=== PATIENT | female | born 1985 | race Caucasian/White ===

== ENCOUNTER 2016-08-08 16:31 | Outpatient (CLI) | payer MEDICARE ==
[2016-08-08] MEDS ORDERED: IOPAMIDOL-300 100 ML VIAL IVP ONE (17:15)
== END 2016-08-08 16:32 | disposition home or self-care (01) ==
DX: Q67.0 Congenital facial asymmetry (principal)
CPT/HCPCS: 70470; Q9967

== ENCOUNTER 2016-12-21 08:00 | Outpatient (CLI) | payer MEDICARE ==
[2016-12-21 18:50] LABS: BASOPHILS % (AUTO) 0.9 %; EOSINOPHILS # (AUTO) 0.4 10^3/uL (0.0-0.7); HGB - HEMOGLOBIN 14.1 g/dL (12.0-16.0); LYMPHOCYTES # (AUTO) 1.8 10^3/uL (1.5-3.5); LYMPHOCYTES % (AUTO) 32.3 %; MEAN CORPUSCULAR HEMOGLOBIN 30.2 pg (27.0-31.0); MEAN CORPUSCULAR HGB CONC 33.6 g/dL (32.0-36.0); MEAN CORPUSCULAR VOLUME 89.8 fL (81.0-99.0); MEAN PLATELET VOLUME 7.4 fL (7.9-10.8); MONOCYTES # (AUTO) 0.3 10^3/uL (0.0-1.0); MONOCYTES % (AUTO) 5.8 %; RED BLOOD COUNT 4.67 10^6/uL (4.20-5.40); RED CELL DISTRIBUTION WIDTH 13.8 % (12.0-15.0); UNCORRECTED WHITE BLOOD COUNT 5.6 x10^3/uL; WHITE BLOOD COUNT 5.6 x10^3/uL (4.8-10.8)
[2016-12-21 19:02] LABS: ALBUMIN/GLOBULIN RATIO 1.7 (1.0-2.2); BILIRUBIN,TOTAL 0.4 mg/dL (0.2-1.0); BUN - BLOOD UREA NITROGEN 18 mg/dL (6-20); CALCIUM 9.2 mg/dL (8.5-10.3); CARBON DIOXIDE - CO2 28 mmol/L (21-32); CHLORIDE 104 mmol/L (101-111); CHOLESTEROL 148 mg/dL; CREATININE 0.7 mg/dL (0.4-1.0); GFR - MDRD 96 (>89); GLUCOSE 94 mg/dL (70-100); HDL CHOLESTEROL 74 mg/dL; POTASSIUM 3.8 mmol/L (3.5-5.0); SODIUM 138 mmol/L (135-145); TOTAL PROTEIN 7.1 g/dL (6.7-8.2); TRIGLYCERIDES 39 mg/dL
[2016-12-21 19:25] LABS: LDL CHOLESTEROL,DIRECT 53 mg/dL
== END 2016-12-21 08:01 ==
LOC: LAB.N 08:00
PROVIDERS: ATTEND Nurse Practitioner Gerontology
DX: Z79.899 Other long term (current) drug therapy (principal)
CPT/HCPCS: 36415; 80053; 80061; 84443; 85025

== ENCOUNTER 2017-03-08 07:02 | Outpatient (CLI) | payer MEDICARE ==
[2017-03-08 19:33] LABS: INR 1.1 (0.8-1.2); PT - PROTHROMBIN TIME 11.9 secs (9.9-12.6)
[2017-03-08 19:36] LABS: ALBUMIN/GLOBULIN RATIO 1.8 (1.0-2.2); BILIRUBIN,TOTAL 0.9 mg/dL (0.2-1.0); CALCIUM 9.7 mg/dL (8.5-10.3); CREATININE 0.7 mg/dL (0.4-1.0); POTASSIUM 3.9 mmol/L (3.5-5.0); TOTAL PROTEIN 7.1 g/dL (6.7-8.2)
[2017-03-08 19:42] LABS: PARTIAL THROMBOPLASTIN TIME 27.2 secs (24.9-33.3)
== END 2017-03-08 07:03 | disposition home or self-care (01) ==
LOC: LAB.N 07:02
PROVIDERS: ATTEND Nurse Practitioner Gerontology
DX: Z01.818 Encounter for other preprocedural examination (principal)
CPT/HCPCS: 36415; 80053; 85025; 85610; 85730; 86317; 86803; 87389

== ENCOUNTER 2017-03-08 14:30 | Outpatient (CLI) | payer MEDICARE | END 2017-03-08 15:00 | disposition home or self-care (01) | LOC: RT.N 14:30 | PROVIDERS: ATTEND Nurse Practitioner Gerontology | DX: Z01.810 Encounter for preprocedural cardiovascular examination (principal) | CPT/HCPCS: 93005 ==

== ENCOUNTER 2017-03-08 15:07 | Outpatient (CLI) | payer MEDICARE | END 2017-03-08 15:08 | disposition home or self-care (01) | LOC: DI.N 15:07 | PROVIDERS: ATTEND Nurse Practitioner Gerontology | DX: Z53.9 Procedure and treatment not carried out, unspecified reason (principal) ==

== ENCOUNTER 2017-03-08 15:59 | Outpatient (CLI) | payer MEDICARE | END 2017-03-08 16:00 | disposition EMS.NT | LOC: EMS 15:59 | PROVIDERS: ATTEND Surgery | DX: R55 Syncope and collapse (principal) ==

== ENCOUNTER 2017-03-09 06:59 | Outpatient (CLI) | payer MEDICARE ==
[2017-03-09 19:11] LABS: BASOPHILS % (AUTO) 0.7 %; EOSINOPHILS # (AUTO) 0.2 10^3/uL (0.0-0.7); EOSINOPHILS % (AUTO) 2.8 %; HGB - HEMOGLOBIN 14.5 g/dL (12.0-16.0); LYMPHOCYTES # (AUTO) 1.5 10^3/uL (1.5-3.5); LYMPHOCYTES % (AUTO) 23.2 %; MEAN CORPUSCULAR HEMOGLOBIN 30.8 pg (27.0-31.0); MEAN CORPUSCULAR HGB CONC 34.6 g/dL (32.0-36.0); MEAN PLATELET VOLUME 8.1 fL (7.9-10.8); MONOCYTES # (AUTO) 0.5 10^3/uL (0.0-1.0); MONOCYTES % (AUTO) 7.3 %; NEUTROPHILS # (AUTO) 4.2 10^3/uL (1.5-6.6); RED BLOOD COUNT 4.72 10^6/uL (4.20-5.40); RED CELL DISTRIBUTION WIDTH 13.9 % (12.0-15.0); UNCORRECTED WHITE BLOOD COUNT 6.4 x10^3/uL; WHITE BLOOD COUNT 6.4 x10^3/uL (4.8-10.8)
== END 2017-03-09 07:00 | disposition home or self-care (01) ==
LOC: LAB.WCP 06:59
PROVIDERS: ATTEND Nurse Practitioner Gerontology
DX: Z01.818 Encounter for other preprocedural examination (principal)
CPT/HCPCS: 36415; 85025; 87389

== ENCOUNTER 2017-03-09 07:01 | Outpatient (CLI) | payer MEDICARE | END 2017-03-09 07:02 | disposition home or self-care (01) | LOC: LAB.N 07:01 | PROVIDERS: ATTEND Nurse Practitioner Gerontology | DX: Z53.9 Procedure and treatment not carried out, unspecified reason (principal) | CPT/HCPCS: 85025; 87389 ==

== ENCOUNTER 2017-03-09 11:06 | Outpatient (CLI) | payer MEDICARE ==
--- NOTE | 2017-03-09 13:45 | XRAY Report ---
CHEST TWO VIEWS: 03/09/2017 CLINICAL HISTORY: Preop check. COMPARISON: None. FINDINGS: Normal heart size. Clear lungs. No pleural effusion or pneumothorax. Normal bony structure s. IMPRESSION: NEGATIVE TWO VIEW CHEST. JOB #: [id number] EXT JOB #:[id number]
== END 2017-03-09 11:07 | disposition home or self-care (01) ==
LOC: DI.N 11:06
PROVIDERS: ATTEND Nurse Practitioner Gerontology
DX: Z01.818 Encounter for other preprocedural examination (principal)
CPT/HCPCS: 36415; 71020; 85025; G0475; 87389

== ENCOUNTER 2018-07-04 10:53 | Outpatient (CLI) | payer MEDICARE, OTHER ==
[2018-07-04 13:15] LABS: BASOPHILS % (AUTO) 0.5 %; EOSINOPHILS # (AUTO) 0.2 10^3/uL (0.0-0.7); EOSINOPHILS % (AUTO) 3.5 %; HGB - HEMOGLOBIN 14.4 g/dL (12.0-16.0); LYMPHOCYTES # (AUTO) 1.9 10^3/uL (1.5-3.5); LYMPHOCYTES % (AUTO) 38.6 %; MEAN CORPUSCULAR HEMOGLOBIN 31.1 pg (27.0-31.0); MEAN CORPUSCULAR HGB CONC 34.1 g/dL (32.0-36.0); MEAN CORPUSCULAR VOLUME 91.1 fL (81.0-99.0); MONOCYTES # (AUTO) 0.4 10^3/uL (0.0-1.0); MONOCYTES % (AUTO) 7.3 %; NEUTROPHILS # (AUTO) 2.5 10^3/uL (1.5-6.6); NEUTROPHILS % (AUTO) 50.1 %; PLT - PLATELET COUNT 254 10^3/uL (130-450); RED BLOOD COUNT 4.64 10^6/uL (4.20-5.40); WHITE BLOOD COUNT 5.1 x10^3/uL (4.8-10.8)
[2018-07-04 14:36] LABS: ALBUMIN 4.4 g/dL (3.2-5.5); ALBUMIN/GLOBULIN RATIO 1.6 (1.0-2.2); ALKALINE PHOSPHATASE 48 IU/L (42-121); ALT ALANINE AMINOTRANSFERASE 14 IU/L (10-60); AST ASPARTATE AMINOTRANSFERASE 19 IU/L (10-42); BILIRUBIN,TOTAL 0.6 mg/dL (0.2-1.0); BUN - BLOOD UREA NITROGEN 14 mg/dL (6-20); CARBON DIOXIDE - CO2 21 mmol/L (21-32); CHLORIDE 103 mmol/L (101-111); CHOL/HDL RATIO 2.5 (<4.4); CHOLESTEROL 136 mg/dL; CREATININE 0.7 mg/dL (0.4-1.0); GFR - MDRD 96 (>89); GLUCOSE 150 mg/dL (70-100); HDL CHOLESTEROL 55 mg/dL; LDL CHOLESTEROL,CALCULATED 71 mg/dL; LDL/HDL RATIO 1.3 (<4.4); SODIUM 134 mmol/L (135-145); TOTAL PROTEIN 7.2 g/dL (6.7-8.2); VLDL CHOLESTEROL 10 mg/dL
== END 2018-07-04 23:59 | disposition home or self-care (01) ==
LOC: LAB.N 10:53
PROVIDERS: ATTEND Nurse Practitioner Gerontology
DX: Z79.899 Other long term (current) drug therapy (principal)
CPT/HCPCS: 36415; 80053; 80061; 83721; 84443; 85025

== ENCOUNTER → 2020-04-09 | Outpatient (CLI) | payer MEDICARE ==
[2020-04-09 18:23] LABS: BASOPHILS % (AUTO) 0.5 %; EOSINOPHILS # (AUTO) 0.3 10^3/uL (0.0-0.7); LYMPHOCYTES # (AUTO) 1.8 10^3/uL (1.5-3.5); LYMPHOCYTES % (AUTO) 30.2 %; MEAN CORPUSCULAR HEMOGLOBIN 31.5 pg (27.0-31.0); MEAN CORPUSCULAR HGB CONC 33.6 g/dL (32.0-36.0); MEAN CORPUSCULAR VOLUME 93.9 fL (81.0-99.0); MEAN PLATELET VOLUME 9.3 fL (7.9-10.8); MONOCYTES # (AUTO) 0.4 10^3/uL (0.0-1.0); MONOCYTES % (AUTO) 7.6 %; NEUTROPHILS # (AUTO) 3.3 10^3/uL (1.5-6.6); NEUTROPHILS % (AUTO) 56.2 %; PLT - PLATELET COUNT 288 10^3/uL (130-450); RED BLOOD COUNT 4.44 10^6/uL (4.20-5.40); RED CELL DISTRIBUTION WIDTH 13.4 % (12.0-15.0); WHITE BLOOD COUNT 5.8 x10^3/uL (4.8-10.8)
[2020-04-09 19:00] LABS: ALBUMIN 4.5 g/dL (3.2-5.5); ALBUMIN/GLOBULIN RATIO 1.6 (1.0-2.2); ALKALINE PHOSPHATASE 46 IU/L (42-121); ALT ALANINE AMINOTRANSFERASE 13 IU/L (10-60); AST ASPARTATE AMINOTRANSFERASE 21 IU/L (10-42); BILIRUBIN,TOTAL 0.6 mg/dL (0.2-1.0); BUN - BLOOD UREA NITROGEN 17 mg/dL (6-20); CALCIUM 9.7 mg/dL (8.5-10.3); CARBON DIOXIDE - CO2 25 mmol/L (21-32); CHLORIDE 101 mmol/L (101-111); CHOL/HDL RATIO 1.8 (<4.4); CHOLESTEROL 169 mg/dL; CREATININE 0.7 mg/dL (0.4-1.0); GLUCOSE 95 mg/dL (70-100); HDL CHOLESTEROL 93 mg/dL; LDL CHOLESTEROL,CALCULATED 62 mg/dL; LDL/HDL RATIO 0.7 (<4.4); SODIUM 136 mmol/L (135-145); TOTAL PROTEIN 7.4 g/dL (6.7-8.2); VLDL CHOLESTEROL 14 mg/dL
== END ==
LOC: LAB.WCP 08:00
PROVIDERS: ATTEND Family Medicine
DX: Z00.00 Encounter for general adult medical examination without abnormal findings (principal); Z79.899 Other long term (current) drug therapy
CPT/HCPCS: 36415; 80053; 80061; 83721; 84443; 85025

== ENCOUNTER 2022-07-20 10:20 | Outpatient (CLI) | payer SELFPAY | END 2022-07-20 23:59 | disposition home or self-care (01) | LOC: LAB.WCP 10:20 | PROVIDERS: ATTEND Physician Assistant Medical | DX: R35.0 Frequency of micturition (principal) | CPT/HCPCS: 87086 ==

== ENCOUNTER 2022-08-26 19:00 | Outpatient (CLI) | payer MEDICAID | END 2022-08-26 19:01 | disposition left against medical advice (07) | LOC: EMS 19:00 | DX: R19.8 Other specified symptoms and signs involving the digestive system and abdomen (principal); F41.9 Anxiety disorder, unspecified ==

== ENCOUNTER 2022-08-28 08:00 | Outpatient (CLI) | payer MEDICAID | END 2022-08-28 23:59 | disposition home or self-care (01) | LOC: LAB.N 08:00 | PROVIDERS: ATTEND Nurse Practitioner | DX: R39.15 Urgency of urination (principal) | CPT/HCPCS: 87086 ==

== ENCOUNTER 2022-09-01 13:30 | Outpatient (CLI) | payer MEDICAID ==
[2022-09-02 00:26] LABS: BACTERIAL VAGINOSIS DNA NEGATIVE (NEGATIVE); CANDIDA GLABRATA DNA NEGATIVE (NEGATIVE); CANDIDA GROUP DNA NEGATIVE (NEGATIVE); CANDIDA KRUSEI DNA NEGATIVE (NEGATIVE); TRICHOMONAS VAGINALIS DNA NEGATIVE (NEGATIVE)
[2022-09-02 08:59] LABS: CHLAMYDIA TRACHOMATIS DNA NEGATIVE (NEGATIVE); NEISSERIA GONORRHOEAE DNA NEGATIVE (NEGATIVE)
== END 2022-09-01 13:45 | disposition home or self-care (01) ==
LOC: LAB.N 13:30
PROVIDERS: ATTEND Physician Assistant Medical
DX: R35.0 Frequency of micturition (principal)
CPT/HCPCS: 81514; 87491; 87591; 87661

== ENCOUNTER 2022-09-06 09:40 | Outpatient (CLI) | payer MEDICAID ==
--- NOTE | 2022-09-07 10:14 | Ultrasound Report ---
LIMITED ULTRASOUND OF RIGHT BREAST: 09/06/2022 CLINICAL: Palpable right breast lump. No prior exams were available for comparison. Color flow and real-time ultrasound of the right breast 4-6 o'clock region were performed on the area s of interest. Gomez scale images of the real-time examination were reviewed. There is a mass in the right breast at 6 o'clock in the retroareolar region. This mass is hypoechoic with internal echoes and posterior acoustic enhancement. This likely correlates as palpated but was not seen on the prior mammogram. IMPRESSION: PROBABLY BENIGN The mass in the right breast is likely represents a lymph node or a fibroadenoma and is probably birdie gn. A follow-up ultrasound in 6 months is recommended to demonstrate stability. This exam was interpreted at Station ID: [id number]. Electronically Signed By: Trudi Valencia M.D. lk/:09/06/2022 11:04:25 Ultrasound BI-RADS: 3 Probably benign BI-RADS CATEGORY: (3) - 3 Ultrasound [id number] 6 month follow-up LATERALITY: (B)
--- NOTE | 2022-09-07 10:14 | Mammography Report ---
BILATERAL DIGITAL DIAGNOSTIC MAMMOGRAM 3D/2D WITH SPOT COMPRESSION: 09/06/2022 CLINICAL: Baseline exam. Palpable right breast lump. No prior exams were available for comparison. Both breasts are extremely dense, which lowers the sensitivity of mammography (category d />75% gland ular tissue). No significant masses, calcifications, or other findings are seen in either breast. IMPRESSION: INCOMPLETE: NEEDS ADDITIONAL IMAGING EVALUATION There is no mammographic abnormality seen in the right breast to correspond with the palpable abnorma lity, however, targeted ultrasound of the right breast is recommended and will be performed immediat nuris following this exam. Based on the Tyrer Cuzick model (a risk assessment model) the patients lifetime risk is 15.1% and he r 10 year risk is 1.6%. According to the ACR, ACS, and NCCN guidelines, an annual breast MRI exam taran ng with mammogram is recommended if the patients lifetime risk is 20% or greater. This exam was interpreted at Station ID: [id number]. NOTE: For mammograms, a report in lay terms will be sent to the patient. Approximately 15% of breast malignancies will not be visualized mammographically. In the management of a palpable breast mass, a negative mammogram must not discourage biopsy of a clinically suspicious lesion. Electronically Signed By: Trudi Valencia M.D. lk/:09/06/2022 10:23:05 ACR BI-RADS Category 0: Incomplete 3340F PARENCHYMAL PATTERN: (VD) - The breast(s) demonstrate(s) extremely dense parenchyma, limiting the sen sitivity of mammography. BI-RADS CATEGORY: (0) - 0 Ultrasound [id number] Immediate follow-up LATERALITY: (B)
== END 2022-09-06 09:41 | disposition home or self-care (01) ==
LOC: DI 09:40
PROVIDERS: ATTEND Physician Assistant Medical
DX: N63.15 Unspecified lump in the right breast, overlapping quadrants (principal)

== ENCOUNTER 2022-10-30 12:03 | Outpatient (CLI) | payer MEDICAID ==
--- NOTE | 2022-10-31 09:30 | Ultrasound Report ---
LIMITED ULTRASOUND OF RIGHT BREAST: 10/30/2022 CLINICAL: Palpable right breast lump by physician. Short term follow up of the right breast. Comparison is made to exams dated: 09/06/2022 ultrasound and 09/06/2022 mammogram - [facility]. Color flow ultrasound of the right breast 4-6 o'clock and 12 o'clock regions was performed. Gomez sca le images of the real-time examination were reviewed. There is a 1.2 cm x 1.2 cm x 0.4 cm irregular cyst with a septated internal wall in the right breast at 12 o'clock posterior depth 3 cm from the nipple. This irregular cyst is anechoic with posterior a coustic enhancement. This correlates as palpated. Color flow imaging demonstrates that there is no vascularity present. There also is a 0.6 cm x 0.4 cm x 0.2 cm oval mass with a circumscribed margin in the right breast at 6 o'clock in the retroareolar region 2 cm from the nipple. This oval mass is hypoechoic with web marketing intern al echoes and posterior acoustic enhancement. This abnormality is not significantly changed. IMPRESSION: PROBABLY BENIGN The 1.2 cm x 1.2 cm x 0.4 cm irregular cyst in the right breast at 12 o'clock posterior depth is cons istent with a complicated cyst and is probably benign. The 0.6 cm x 0.4 cm x 0.2 cm oval mass in the right breast at 6 o'clock in the retroareolar region is consistent with a complicated cyst, a lymph node, or a fibroadenoma and is probably benign. A follow-up right mammogram and an ultrasound in 6 months is recommended to demonstrate stability. F uture imaging is recommended as follows: 03/09/2023 right mammogram and an ultrasound. This exam was interpreted at Station ID: [id number]. Electronically Signed By: Jaspal beal/michael:10/30/2022 14:26:01 Ultrasound BI-RADS: 3 Probably benign BI-RADS CATEGORY: (3) - 3 Mammo and US [id number] 6 month follow-up LATERALITY: (R)
== END 2022-10-30 12:04 | disposition home or self-care (01) ==
LOC: DI 12:03
PROVIDERS: ATTEND Surgery
DX: N60.01 Solitary cyst of right breast (principal); N63.15 Unspecified lump in the right breast, overlapping quadrants

== ENCOUNTER 2022-11-01 09:31 | Outpatient (CLI) | payer MEDICAID ==
--- NOTE | 2022-11-03 11:29 | Ultrasound Report ---
LIMITED ULTRASOUND OF RIGHT BREAST: 11/01/2022 CLINICAL: Patient returns for additional imaging over a suspected mass in the right breast. Comparison is made to exams dated: 10/30/2022 ultrasound, 09/06/2022 ultrasound, and 09/06/2022 mammogr am - [facility]. Color flow ultrasound of the right breast 4 o'clock, 6 o'clock, and 12 o'clock regions was performed. Gomez scale images of the real-time examination were reviewed. There is a 0.6 cm x 0.5 cm x 0.3 cm oval mass with an indistinct margin in the right breast at 6 o'cl ock anterior depth 2 cm from the nipple with the long axis parallel to the skin. This oval mass is h ypoechoic with posterior acoustic enhancement. This abnormality is decreased in size and correlates as palpated. Color flow imaging demonstrates that there is no vascularity present. There also is a 1.3 cm x 0.9 cm x 0.3 cm complicated cyst in the right breast at 12 o'clock anterior depth 2 cm from the nipple. It has a smooth, lobulated margin and has decreased in size. Color flow imaging demonstrates that there is no vascularity present. An incidental oval mass parallel to the skin surface is again noted at the 4:00 position measuring up to 0.7 cm, not significantly changed. IMPRESSION: PROBABLY BENIGN The 0.6 cm mass in the right breast at 6 o'clock has decreased in size from the previous exam 2 month s ago, most likely is a lymph node, fibroglandular tissue, or a fibroadenoma and is probably benign. There are no suspicious features to warrant tissue biopsy. It is uncertain if the same finding that was measured previously, as there is a background of inumerable similar findings throughout the breas t tissue. The 1.3 cm complicated cyst in the right breast at 12 o'clock has also decreased in AP size, most lik nuris is a complicated cyst or fibroglandular tissue and is probably benign. The incidental 4:00 mass is unchanged, likely lymph node, fibroglandular tissue or fibroadenoma. A follow-up right mammogram and an ultrasound in 6 months is recommended to demonstrate stability. F uture imaging is recommended as follows: 05/01/2023 right mammogram and an ultrasound. Because of th e extreme breast density, the patient may be a candidate for screening breast MRI, although the TC sc ore is 15.1%. Findings on today's exam, the low degree of suspicion of these findings, breast imaging standards of care, and follow up recommendations were discussed thoroughly with the patient in person at time of e xam. We discussed that biopsy at this point is not warranted. She expressed understanding and agreeme nt with our plan of follow up rather than biopsy. This exam was interpreted at Station ID: [id number]. Electronically Signed By: Giovana syed/:11/02/2022 12:49:07 Ultrasound BI-RADS: 3 Probably benign BI-RADS CATEGORY: (3) - 3 Mammo and [place] [id number] 6 month follow-up LATERALITY: (R)
== END 2022-11-01 09:32 | disposition home or self-care (01) ==
LOC: DI 09:31
PROVIDERS: ATTEND Surgery
DX: R92.8 Other abnormal and inconclusive findings on diagnostic imaging of breast (principal); N60.01 Solitary cyst of right breast

== ENCOUNTER 2022-12-06 09:45 | Outpatient (CLI) | payer MEDICAID ==
[2022-12-06] MEDS ORDERED: LIDOCAINE 1%-EPI 1:100000 20 ML MDV ONE (09:55)
[2022-12-06] MEDS ORDERED: LIDOCAINE-MPF 1% 5 ML VIAL ONE (09:56)
[2022-12-06] MEDS ORDERED: LIDOCAINE-MPF 1% 5 ML VIAL TD ONE (11:34)
[2022-12-06] MEDS ORDERED: LIDOCAINE 1%-EPI 1:100000 20 ML MDV SUBQ ONE (11:36)
--- NOTE | 2022-12-07 11:03 | Mammography Report ---
UNILATERAL RIGHT DIGITAL DIAGNOSTIC MAMMOGRAM POST-PROCEDURE IMAGING FOR MARKER PLACEMENT: 12/06/2022 CLINICAL: Post right breast ultrasound biopsy clip placement imaging. Comparison is made to exam dated: [facility] The right breast is extremely dense, which lowers the sensitivity of mammography (category d />75% gl andular tissue). There is a marker clip in the appropriate position in the right breast at 6 o'clock anterior depth. This marker clip placement is at the biopsy site. This correlates with ultrasound findings and the b iopsy. IMPRESSION: POST PROCEDURE MAMMOGRAM FOR MARKER PLACEMENT There was a successful marker clip placement in the right breast anterior depth. Based on the Tyrer Cuzick model (a risk assessment model) the patients lifetime risk is 15.0% and he r 10 year risk is 1.7%. According to the ACR, ACS, and NCCN guidelines, an annual breast MRI exam taran ng with mammogram is recommended if the patients lifetime risk is 20% or greater. This exam was interpreted at Station ID: [id number]. NOTE: For mammograms, a report in lay terms will be sent to the patient. Approximately 15% of breast malignancies will not be visualized mammographically. In the management of a palpable breast mass, a negative mammogram must not discourage biopsy of a clinically suspicious lesion. Electronically Signed By: Jackson Gallardo M.D. aty/:12/06/2022 18:05:34 ACR BI-RADS Category Post-procedure mammogram for marker placement PARENCHYMAL PATTERN: (VD) - The breast(s) demonstrate(s) extremely dense parenchyma, limiting the sen sitivity of mammography. BI-RADS CATEGORY: () - Unspecified - other recall n/a LATERALITY: (B)
--- NOTE | 2022-12-08 11:47 | Ultrasound Report ---
ULTRASOUND GUIDED BIOPSY RIGHT BREAST WITH MARKING DEVICE INSERTED AND POST MAMMOGRAPHIC IMAGIN11/17 CLINICAL: Right breast mass. PATIENT CONSENT: Risks (minor bleeding, infection, vasovagal reaction and repeat procedure), benefits and alternatives were explained to the patient and written informed consent was obtained. Correlation is made to exams dated: 11/01/2022 ultrasound, 10/30/2022 ultrasound, 09/06/2022 ultrasound , and 09/06/2022 mammogram - [facility]. An ultrasound guided biopsy using real-time ultrasound was performed for the 0.5 cm x 0.4 cm x 0.3 cm oval mass located in the right breast at 6 o'clock anterior depth 2 cm from the nipple. This was described on the previous ultrasound report. The skin was prepped in the usual manner. Loc al anesthetic was administered to the access site. A skin balaji was made in the breast. The abnormal ity was approached from the lateral aspect. A 16 gauge biopsy needle was placed adjacent to the abno rmality under ultrasound guidance. Once the needle was documented to be in the correct location, fou r specimens were obtained using the Marquee biopsy device. A clip was inserted into the biopsy cavity. A sterile dressing was applied to the access site. Post procedure mammographic imaging demonstrates the location device at the targeted area. The specimens were sent to the laboratory for pathological analysis. IMPRESSION: ULTRASOUND GUIDED BIOPSY BENIGN Ultrasound guided biopsy of the 0.5 cm x 0.4 cm x 0.3 cm mass in the right breast at 6 o'clock anteri or depth 2 cm from the nipple was successful. Pathology indicates benign fibroadenoma (FA). Pathology results are concordant with imaging findings . A follow-up mammogram and an ultrasound in 6 months is recommended to demonstrate stability. This exam was interpreted at Station ID: [id number]. [facility] [place]/:12/08/2022 11:12:43 BI-RADS CATEGORY: () - Mammo and US [id number] 6 month follow-up LATERALITY: (B)
== END 2022-12-06 09:46 | disposition home or self-care (01) ==
LOC: DI 09:45
PROVIDERS: ATTEND Surgery
DX: D24.1 Benign neoplasm of right breast (principal)
CPT/HCPCS: 19083

== ENCOUNTER 2024-02-05 08:44 | Outpatient (CLI) | payer MEDICAID ==
--- NOTE | 2024-02-06 13:43 | Ultrasound Report ---
LIMITED ULTRASOUND OF RIGHT BREAST: 02/05/2024 CLINICAL: Patient returns today to evaluate a focal asymmetry in the right breast. Comparison is made to exams dated: 02/05/2024 mammogram, 07/20/2023 ultrasound, 07/20/2023 mammogram, 11/17 ultrasound biopsy, 12/06/2022 mammogram, and 11/01/2022 ultrasound - [facility] Color flow and real-time ultrasound of the right breast 4 o'clock and 12 o'clock regions were perform ed. Gomez scale images of the real-time examination were reviewed. There is an oval hypoechoic mass with circumscribed margins at 12 o'clock, 2 cm from the nipple at po sterior depth. The mass measures 1.1 x 0.5 x 1.1 cm, previously 1.2 x 0.4 x 0.9 cm on 07/20/2023, pr eviously 1.2 x 0.4 by 0.2 cm on 10/30/2022 (previously labeled at 12 o'clock, 3 cm from the nipple). Color-flow imaging demonstrates that there is no vascularity present. There is an oval hypoechoic mass with circumscribed margins at 4 o'clock, 2 cm from the nipple measur ing 0.8 x 0.4 x 0.5 cm previously 0.5 x 0.3 by 0.4 cm on 07/20/2023, previously 0.5 x 0.3 x 0.5 cm on 10/30/2022 (remeasured). Incidental benign simple cyst is seen at 12 o'clock, 2 cm from the nipple at anterior depth measuring up to 0.3 cm. Incidental benign intramammary lymph node is seen at 12 o'clock, 2 cm from the nipple at middle depth measuring up to 0.7 cm. IMPRESSION: PROBABLY BENIGN Right breast 1.1 cm oval circumscribed mass at 12 o'clock, 2 cm from the nipple at posterior depth, s table since October 2022. Finding is probably benign. Recommend follow-up ultrasound in 6 months when pa tient will be due for bilateral mammogram (July 2024), which will demonstrate 21 months of stabil ity. Right breast 0.8 cm oval circumscribed mass at 4 o'clock, 2 cm from the nipple, stable since October 2022 . Finding is probably benign. Recommend follow-up ultrasound in 6 months when patient will be due for bilateral mammogram (July 2024), which will demonstrate 21 months of stability. Findings and recommendations were conveyed to the patient during today's evaluation. This exam was interpreted at Station ID: [id number]. Electronically Signed By: Eva Dwyer M.D., Ph.D. eb/:02/05/2024 11:54:10 Ultrasound BI-RADS: 3 Probably benign BI-RADS CATEGORY: (3) - 3 Mammo and US [id number] 6 month follow-up LATERALITY: (B)
--- NOTE | 2024-02-06 13:43 | Mammography Report ---
UNILATERAL RIGHT DIGITAL DIAGNOSTIC MAMMOGRAM 3D/2D: 02/05/2024 CLINICAL: Patient returns for a 6 month follow up of the right breast. Comparison is made to exams dated: 07/20/2023 mammogram, 12/06/2022 mammogram, and 09/06/2022 mammogram - [facility]. The right breast is extremely dense, which lowers the sensitivity of mammography (category d />75% gl andular tissue). There is biopsy clip in the right breast. No significant masses, calcifications, or other findings ar e seen in the breast. IMPRESSION: INCOMPLETE: NEEDS ADDITIONAL IMAGING EVALUATION Status post right breast needle biopsy. An ultrasound is recommended for further evaluation of previo usly described probably benign ultrasound findings and is scheduled to immediately follow this examin ation. Based on Tyrer-Cuzick model (a risk assessment model), the patient's lifetime risk is 22.4% and her 1 0 year risk is 2.9%. If a patient has an elevated risk, a more comprehensive evaluation should be con sidered and/or a referral to a genetic counselor. The [employer], [employer], and NCCN Guidelines advise the consideration of Breast MRI as an adjunct to screening mammog jaylen in patients whose "Lifetime risk to develop breast cancer" is 20% or higher. This exam was interpreted at Station ID: [id number]. NOTE: For mammograms, a report in lay terms will be sent to the patient. Approximately 15% of breast malignancies will not be visualized mammographically. In the management of a palpable breast mass, a negative mammogram must not discourage biopsy of a clinically suspicious lesion. Electronically Signed By: Eva Dwyer M.D., Ph.D. eb/:02/05/2024 09:18:18 ACR BI-RADS Category 0: Incomplete 3340F PARENCHYMAL PATTERN: (VD) - The breast(s) demonstrate(s) extremely dense parenchyma, limiting the sen sitivity of mammography. BI-RADS CATEGORY: (0) - 0 Ultrasound [id number] Immediate follow-up LATERALITY: (B)
== END 2024-02-05 08:45 | disposition home or self-care (01) ==
LOC: DI 08:44
PROVIDERS: ATTEND Surgery
DX: N63.15 Unspecified lump in the right breast, overlapping quadrants (principal); R92.341 Mammographic extreme density, right breast

== ENCOUNTER 2024-02-09 08:08 | Outpatient (CLI) | payer MEDICAID ==
[2024-02-09 08:22] LABS: BASOPHILS % (AUTO) 0.4 %; EOSINOPHILS # (AUTO) 0.1 10^3/uL (0.0-0.7); EOSINOPHILS % (AUTO) 2.9 %; HCT - HEMATOCRIT 39.4 % (37.0-47.0); HGB - HEMOGLOBIN 12.9 g/dL (12.0-16.0); LYMPHOCYTES # (AUTO) 2.2 10^3/uL (1.5-3.5); LYMPHOCYTES % (AUTO) 46.7 %; MEAN CORPUSCULAR HEMOGLOBIN 28.3 pg (27.0-31.0); MEAN CORPUSCULAR HGB CONC 32.7 g/dL (32.0-36.0); MEAN CORPUSCULAR VOLUME 86.4 fL (81.0-99.0); MEAN PLATELET VOLUME 9.1 fL (7.9-10.8); MONOCYTES # (AUTO) 0.4 10^3/uL (0.0-1.0); MONOCYTES % (AUTO) 8.8 %; NEUTROPHILS % (AUTO) 41.2 %; PLT - PLATELET COUNT 235 10^3/uL (130-450); RED BLOOD COUNT 4.56 10^6/uL (4.20-5.40); RED CELL DISTRIBUTION WIDTH 14.6 % (12.0-15.0); WHITE BLOOD COUNT 4.8 x10^3/uL (4.8-10.8)
[2024-02-09 08:39] LABS: ALBUMIN 4.2 g/dL (3.2-5.5); ALBUMIN/GLOBULIN RATIO 1.6 (1.0-2.2); ALKALINE PHOSPHATASE 39 IU/L (42-121); ALT ALANINE AMINOTRANSFERASE 12 IU/L (10-60); AST ASPARTATE AMINOTRANSFERASE 23 IU/L (10-42); BILIRUBIN,TOTAL 0.5 mg/dL (0.2-1.0); BUN - BLOOD UREA NITROGEN 15 mg/dL (6-20); CALCIUM 9.2 mg/dL (8.5-10.3); CARBON DIOXIDE - CO2 28 mmol/L (21-32); CHLORIDE 103 mmol/L (101-111); CHOLESTEROL 152 mg/dL; CREATININE 0.7 mg/dL (0.6-1.3); GFR - MDRD 93 (>89); GLUCOSE 102 mg/dL (74-104); HDL CHOLESTEROL 77 mg/dL; LDL CHOLESTEROL,CALCULATED 64 mg/dL; LDL/HDL RATIO 0.8 (<4.4); POTASSIUM 3.8 mmol/L (3.5-4.5); SODIUM 136 mmol/L (135-145); TOTAL PROTEIN 6.8 g/dL (6.4-8.9); TRIGLYCERIDES 54 mg/dL; VLDL CHOLESTEROL 11 mg/dL
[2024-02-09 08:55] LABS: THYROID STIMULATING HORMONE 1.54 uIU/mL (0.34-5.60)
== END 2024-02-09 08:09 | disposition home or self-care (01) ==
LOC: LAB 08:08
PROVIDERS: ATTEND Physician Assistant Medical
DX: Z00.00 Encounter for general adult medical examination without abnormal findings (principal)
CPT/HCPCS: 36415; 80053; 80061; 83721; 84443; 85025